=== PATIENT | male | born 1965 | race Two or more races ===

== ENCOUNTER 2024-04-16 12:00 | Inpatient (IN) | payer OTHER ==
[~2024-04-16] VITALS: Ht 172.7 cm; Wt 117.9 kg
[2024-04-16] MEDS ORDERED: LIPITOR20 MG PO (14:07)
[2024-04-16] MEDS ORDERED: CARVEDILOL12.5 MG (14:07)
[2024-04-16] MEDS ORDERED: AVALIDE 300-121 EACH PO (14:07)
[2024-04-16] MEDS ORDERED: HUMALOG100 UNIT/2 (14:08)
[2024-04-16] MEDS ORDERED: LANTUS SOL100 UNIT/1 (14:08)
[2024-04-16] MEDS ORDERED: CLONAZEPAM0.5 MG PO (14:09)
[2024-04-16] MEDS ORDERED: RESTORIL30 M1 PO (14:10)
[2024-04-26] MEDS ORDERED: METRONIDAZOLE/SODIUM CHLORIDE 500 MG/100 ML PIGGYBACK IV ONE (08:45)
[2024-04-26] MEDS ORDERED: CEFTRIAXONE SODIUM 2,000 MG VIAL IV ONE (08:45)
[2024-04-26] MEDS ORDERED: BUPIVACAINE HCL 30 ML VIAL IJ ONE (09:00)
[2024-04-26] MEDS ORDERED: LIDOCAINE HCL 1%/EPINEPHRINE 20ML VIAL IJ ONE (09:15)
[2024-04-26] MEDS ORDERED: ENALAPRILAT DIHYDRATE 1.25 MG/ML VIAL IV ONE ×2 (09:15→10:50)
[2024-04-26] MEDS ORDERED: MORPHINE SULFATE 4 MG/ML CARTRIDGE IV PRN (10:00)
[2024-04-26] MEDS ORDERED: ONDANSETRON HCL 2 MG/ML VIAL IV PRN (10:00)
[2024-04-26] MEDS ORDERED: OxyCODONE HCL 5 MG TABLET (ROXICODONE) PO PRN (10:00)
[2024-04-26] MEDS ORDERED: DEXTROSE 50 % IN WATER 0.5 G/ML DISP.SYRIN IV PRN ×2 (10:00→14:45)
[2024-04-26] MEDS ORDERED: 0.9 % SODIUM CHLORIDE 1,000 ML IV SCH (10:00)
[2024-04-26] MEDS ORDERED: MORPHINE SULFATE 4 MG/ML VIAL IV ONE ×3 (10:20→11:50)
[2024-04-26] MEDS ORDERED: ENALAPRILAT DIHYDRATE 2.5 MG/2 ML VIAL IV ONE (10:20)
[2024-04-26] MEDS ORDERED: ONDANSETRON HCL 2 MG/ML VIAL IV ONE (10:50)
[2024-04-26] MEDS ORDERED: SIMETHICONE 125 MG CAPSULE PO SCH (13:00)
[2024-04-26] MEDS ORDERED: hydrALAZINE HCL 20 MG VIAL IV ONE (13:00)
[2024-04-26] MEDS ORDERED: HYOSCYAMINE SULFATE 0.125 MG TAB.SUBL SL SCH (13:00)
[2024-04-26 13:19] LABS: HEMOGLOBIN 14.4 g/dL (13-16.00); MEAN CELL VOLUME 84.2 fL (80.0-100.00); MEAN CORPUSCULAR HEMOGLOBIN 27.5 pg (27.00-32.0); MEAN CORPUSCULAR HGB CONC 32.6 g/dl (32.0-36.0); RED BLOOD COUNT 5.23 M/uL (4.00-6.00); RED CELL DISTRIBUTION WIDTH 15.8 % (11.5-14.5)
[2024-04-26 13:21] LABS: PLATELET COUNT 121 K/uL (150-450)
[2024-04-26] MEDS ORDERED: ACETAMINOPHEN 500 MG GEL..CAP PO SCH (14:00)
[2024-04-26] MEDS ORDERED: ENALAPRILAT DIHYDRATE 1.25 MG/ML VIAL IV PRN (14:30)
[2024-04-26] MEDS ORDERED: INSULIN LISPRO 1,000 UNIT/10 ML UNITS SUBCUTANEO PRN (14:45)
[2024-04-26 16:47] VITALS: BP 125/55; O2SAT 95
[2024-04-26] MEDS ORDERED: CARVEDILOL 12.5 MG TABLET PO SCH (17:00)
[2024-04-26] MEDS ORDERED: METOCLOPRAMIDE HCL 5 MG/ML VIAL IV SCH (17:00)
[2024-04-26] MEDS ORDERED: GABAPENTIN 300 MG CAPSULE PO SCH (17:00)
[2024-04-26] MEDS ORDERED: FAMOTIDINE/PF 20 MG/2 ML VIAL IV PUSH SCH (21:00)
[2024-04-26] MEDS ORDERED: CELECOXIB 200 MG CAPSULE PO SCH (21:00)
[2024-04-27 00:57] VITALS: BP 162/72; O2SAT 95
[2024-04-27 07:21] LABS: HEMATOCRIT 42.8 % (39.0-48.0); HEMOGLOBIN 13.7 g/dL (13-16.00); MEAN CELL VOLUME 84.9 fL (80.0-100.00); MEAN CORPUSCULAR HEMOGLOBIN 27.2 pg (27.00-32.0); MEAN CORPUSCULAR HGB CONC 32.1 g/dl (32.0-36.0); RED BLOOD COUNT 5.05 M/uL (4.00-6.00); RED CELL DISTRIBUTION WIDTH 15.7 % (11.5-14.5)
[2024-04-27 07:52] LABS: PLATELET COUNT 124 K/uL (150-450)
[2024-04-27 08:00] VITALS: BP 130/54; O2SAT 100
[2024-04-27 08:12] LABS: ALBUMIN 2.8 gm/dL (3.4-5.0); CALCIUM 8.3 mg/dL (8.5-10.1); CREATININE SERUM 1.13 mg/dL (0.70-1.30); GFR 66.42; MAGNESIUM 1.9 mg/dL (1.8-2.4); POTASSIUM 4.23 mEq/L (3.5-5.1)
[2024-04-27] MEDS ORDERED: HYDROCHLOROTHIAZIDE 12.5 MG CAPSULE PO SCH (09:00)
[2024-04-27] MEDS ORDERED: IRBESARTAN 300 MG TABLET PO SCH (09:00)
[2024-04-27] MEDS ORDERED: LACTOBACILLUS ACIDOPHILUS 1 CAP CAP PO SCH (09:00)
[2024-04-27] MEDS ORDERED: CLONAZEPAM 0.5 MG TABLET PO SCH (09:00)
[2024-04-27 16:00] VITALS: BP 141/63; O2SAT 97
[2024-04-27] MEDS ORDERED: ENOXAPARIN SODIUM 40 MG/0.4 ML SYRINGE SUBCUTANEO SCH (17:00)
[2024-04-27] MEDS ORDERED: POLYETHYLENE GLYCOL 3350 17 GM BLIST.PACK PO SCH (17:00)
[2024-04-27] MEDS ORDERED: TEMAZEPAM 15 MG CAPSULE PO SCH (21:00)
[2024-04-28 01:54] VITALS: BP 142/61; O2SAT 96
[2024-04-28 08:00] VITALS: BP 143/66; O2SAT 96
[2024-04-28] MEDS ORDERED: ENOXAPARIN SODIUM 40 MG/0.4 ML SYRINGE SUBCUTANEO SCH (09:00)
[2024-04-28] MEDS ORDERED: CELECOXIB200 MG PO (10:08)
[2024-04-28] MEDS ORDERED: NEURONTIN300 MG PO (10:08)
[2024-04-28] MEDS ORDERED: INTESTINEX680 M1 PO (10:08)
[2024-04-28] MEDS ORDERED: TRAMADOL HCL50 MG PO (10:09)
== END 2024-04-28 16:16 | disposition home or self-care (01) | DRG 331 ==
LOC: O/R 04-26 05:05 → SURG 04-26 09:45 → SURH 04-26 12:10
PROVIDERS: ADMIT Surgery; ATTEND Surgery
PROC: 0DNK4ZZ Release Ascending Colon, Percutaneous Endoscopic Approach (ICD-10-PCS; 2024-04-26)
PROC: 07BC4ZX Excision of Pelvis Lymphatic, Percutaneous Endoscopic Approach, Diagnostic (ICD-10-PCS; 2024-04-26)
PROC: 4A12X4Z Monitoring of Cardiac Electrical Activity, External Approach (ICD-10-PCS; 2024-04-26)
PROC: 0DTF4ZZ Resection of Right Large Intestine, Percutaneous Endoscopic Approach (ICD-10-PCS; principal; 2024-04-26 09:45)
DX: D12.0 Benign neoplasm of cecum (principal); D37.4 Neoplasm of uncertain behavior of colon